=== PATIENT | male | born 1990 | race Two or more races ===

== ENCOUNTER 2021-11-15 22:20 | Emergency (ER) | payer SELFPAY ==
[~2021-11-15] VITALS: Ht 160 cm; Wt 59.2 kg
[2021-11-15] MEDS ORDERED: MORPHINE SULFATE 4 MG/ML INJ. IM ONE (23:15)
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
[2021-11-16 00:30] VITALS: BP 140/82
[2021-11-16] MEDS ORDERED: IBUP-1007 PO (00:33)
== END 2021-11-16 00:50 | disposition home or self-care (01) ==
LOC: ER 22:20
DX: R51.9 Headache, unspecified (principal)
CPT/HCPCS: 70450; 70486; 99284-25